=== PATIENT | female | born 1980 | race African-American/Black ===

== ENCOUNTER 2018-05-24 09:07 | Emergency (ER) | payer MEDICAID ==
[~2018-05-24] VITALS: Ht 167.6 cm; Wt 82.0 kg
[2018-05-24 09:24] VITALS: BP 137/73
== END 2018-05-24 11:07 | disposition home or self-care (01) ==
LOC: ER 09:07
DX: H10.13 Acute atopic conjunctivitis, bilateral (principal); J45.909 Unspecified asthma, uncomplicated
CPT/HCPCS: 99281